=== PATIENT | female | born 1940 | race Caucasian/White ===

== ENCOUNTER → 2019-02-06 | Outpatient (CLI) | payer MEDICARE | LOC: MC.RAD 10:29 | DX: N63.11 Unspecified lump in the right breast, upper outer quadrant (principal) | CPT/HCPCS: G0279 ==

== ENCOUNTER 2019-02-17 10:00 | Outpatient (RCR) | payer MEDICARE ==
[2019-02-11 09:49] VITALS: BP 124/53; PULSE 60; TEMP 97.5
[~2019-02-17] VITALS: Ht 157.5 cm; Wt 75.2 kg
[~2019-02-17 10:00] MED LIST: ZOFRAN8 MG PO; ZOVIRAX400 MG PO; ZYLOPRIM 300MG300 MG PO
--- NOTE | 2019-02-17 10:00 | NUR ---
PICC intact left upper arm with sterile dressing change done with insertion site cleansed with chloraprep x 1, chlorhexidine impregnated disk applied, skin prep, stat lock, and tegaderm applied. no signs or symptoms of IV complications noted. no concerns voiced. re-wrapped with norm to protect catheter. to return next week for cares. voiced understanding of instructions.
[2019-02-17 10:14] VITALS: BP 115/52; PULSE 62; TEMP 98
== END 2019-02-18 15:40 | disposition home or self-care (01) ==
LOC: EUO 10:00
DX: Z45.2 Encounter for adjustment and management of vascular access device (principal); N63.11 Unspecified lump in the right breast, upper outer quadrant; Z85.6 Personal history of leukemia; Z87.81 Personal history of (healed) traumatic fracture; Z95.9 Presence of cardiac and vascular implant and graft, unspecified
CPT/HCPCS: C1751

== ENCOUNTER 2019-03-13 06:46 | Day surgery (SDC) | payer MEDICARE ==
[~2019-03-13] VITALS: Ht 157.5 cm; Wt 74.5 kg
--- NOTE | 2019-03-13 07:23 | NUR ---
Patient ambulatory from radiology accompanied by Marguerite to room 5 and is alert and oriented x3. Voices understanding of surgery and consent signed. Changes clothes and resting on cart and covered with warm blankets. Left upper arm PICC line noted and site is free of redness or swelling. Cap changed and PICC line flushed per protocol. Lab drawn as ordered. Daughter in room. Call light in reach and siderails up x2.
[2019-03-13 07:58] LABS: MEAN CELL VOLUME 105 fl (80.0-100.0); MEAN CORPUSCULAR HGB CONC 31 g/dl (33.0-37.0); RED BLOOD COUNT 2.85 M/mm3 (4.10-5.30); REDCELL DISTRIBUTION WIDTH-CV 19.5 % (11.5-14.5)
[2019-03-13 08:07] LABS: HEMATOCRIT 29.9 % (37.0-47.0); HEMOGLOBIN 9.3 g/dl (12.5-16.0); MEAN CORPUSCULAR HEMOGLOBIN 33 pg (27.0-31.0)
[2019-03-13 08:11] LABS: PLATELET COUNT 49 K/mm3 (130-400)
--- NOTE | 2019-03-13 08:19 | NUR ---
Lab results called to Dr. Barrientos and will await further orders.
[2019-03-13 08:21] VITALS: BP 112/53; PULSE 64; TEMP 97.4
[2019-03-13 08:39] LABS: BAND 9 % (0-10); EOSINOPHIL 6 % (0-4); LYMPHOCYTE 44 % (20.0-51.0); NEUTROPHILS 36 % (42.0-75.2); PLATELET ESTIMATE DECREASED (NORMAL)
[2019-03-13] MEDS ORDERED: ZYLOPRIM 300MG300 MG PO (08:48)
[2019-03-13] MEDS ORDERED: TENORMIN 5050 MG/TAB PO (08:48)
[2019-03-13] MEDS ORDERED: NEURONTIN300 MG/CAP PO (08:51)
[2019-03-13] MEDS ORDERED: VOLTAREN 50MG T50 MG PO (08:51)
[2019-03-13] MEDS ORDERED: SINGULAIR 110 MG/TAB PO (08:52)
[2019-03-13] MEDS ORDERED: MICRO-K 10 EXT10 MEQ PO (08:52)
[2019-03-13] MEDS ORDERED: DIOVAN HCT 25 M1 TA1 PO (08:53)
[2019-03-13] MEDS ORDERED: VENCLEXTA100 MG PO (08:54)
--- NOTE | 2019-03-13 09:00 | NUR ---
Dr. Barrientos here and is talking with the patient regarding low platelet count. Plan to cancel surgery for today and will reschedule for next Sunday. Dr. Barrientos talked to Dr. Haddad and will plan on drawing lab on Sunday. Dr. Barrientos's office will call the patient with all the details. Patient and daughter both verbalize undertanding of this.
--- NOTE | 2019-03-13 09:23 | NUR ---
IVF discontinued and PICC line flushed per protocol. Patient dismissed to home per private vehicle driven by daughter and taken to the front door per Patti LINE PAINTING MACHINE OPERATOR and assisted into car.
== END 2019-03-13 09:23 | disposition home or self-care (01) ==
LOC: SDCO 06:46
PROVIDERS: Surgery
DX: C50.411 Malignant neoplasm of upper-outer quadrant of right female breast (principal); I10 Essential (primary) hypertension; G47.33 Obstructive sleep apnea (adult) (pediatric); M19.90 Unspecified osteoarthritis, unspecified site; C92.50 Acute myelomonocytic leukemia, not having achieved remission; Z17.1 Estrogen receptor negative status [ER-]; Z79.82 Long term (current) use of aspirin; Z92.21 Personal history of antineoplastic chemotherapy; Z85.3 Personal history of malignant neoplasm of breast; Z80.1 Family history of malignant neoplasm of trachea, bronchus and lung; Z83.3 Family history of diabetes mellitus; Z82.49 Family history of ischemic heart disease and other diseases of the circulatory system; Z80.3 Family history of malignant neoplasm of breast; Z53.8 Procedure and treatment not carried out for other reasons
CPT/HCPCS: A9541; J7120

== ENCOUNTER 2019-03-19 06:40 | Day surgery (SDC) | payer MEDICARE ==
[~2019-03-19] VITALS: Ht 157.5 cm; Wt 76.2 kg
[2019-03-19] VITALS (14 sets, daily range): BP systolic 112–138; BP diastolic 51–92; PULSE 57–89; TEMP 97.1–98.4
[~2019-03-19 06:40] MED LIST changes: +DIOVAN HCT 25 M1 TA1 PO; +MICRO-K 10 EXT10 MEQ PO; +NEURONTIN300 MG/CAP PO; +SINGULAIR 110 MG/TAB PO; +TENORMIN 5050 MG/TAB PO; +VENCLEXTA100 MG PO; +VOLTAREN 50MG T50 MG PO
--- NOTE | 2019-03-19 06:46 | NUR ---
The patient ambulated back to [place] [facility] independently using a steady gait and appeared to tolerate the activity well. The patient's vital signs were obtained. Consent signed. Lab has been called to obtained blood from nurse off PICC line for labs as ordered. Will continue to monitor the patient.
[2019-03-19 07:23] LABS: MEAN CELL VOLUME 105 fl (80.0-100.0); MEAN CORPUSCULAR HGB CONC 30 g/dl (33.0-37.0); MEAN PLATELET VOLUME 11.4 fl (7.4-10.4); RED BLOOD COUNT 2.86 M/mm3 (4.10-5.30); REDCELL DISTRIBUTION WIDTH-CV 18.8 % (11.5-14.5)
--- NOTE | 2019-03-19 07:30 | NUR ---
Marguerite from [facility] is at the patient's bedside to take her via cart to their department to have her injections done prior to surgery. The patient's chart was sent with her. The nurse will continue to monitor the patient when she returns to the unit. The patient's family was brought back to be at her bedside and is going to wait in her room while she goes to radiology.
[2019-03-19 07:54] LABS: HEMATOCRIT 29.9 % (37.0-47.0); HEMOGLOBIN 9.1 g/dl (12.5-16.0); MEAN CORPUSCULAR HEMOGLOBIN 32 pg (27.0-31.0); PLATELET COUNT 41 K/mm3 (130-400)
[2019-03-19 08:58] LABS: ANISOCYTOSIS 1+; BAND 16 % (0-10); BASOPHIL 2 % (0-2); LYMPHOCYTE 46 % (20.0-51.0); METAMYELOCYTE 2 % (0-0); MYELOCYTE 2 % (0-0); NEUTROPHILS 26 % (42.0-75.2); PLATELET ESTIMATE DECREASED (NORMAL)
--- NOTE | 2019-03-19 10:42 | NUR ---
Initial visit; Patient and her family thanked Planting Material Carrier for offering encouragement and prayer prior to her surgical procedure. Planting Material Carrier prayed for a successful procedure and rapid and thorough healing.
--- NOTE | 2019-03-19 10:45 | NUR ---
The patient was taken via cart to radiology to finish her imaging with nuculear medicine prior to surgery. Will continue to monitor the patient when she returns to the unit.
--- NOTE | 2019-03-19 11:40 | NUR ---
The patient's unit of irradiated platelets were started at this time according to the policy and procedure in place. The transfusion is infusing into a PICC line in the patient's left upper arm without difficulty. Vital signs were started prior to the transfusion starting. The unit was checked with [facility] prior to it being started. The patient and her family were educated on the signs of symptoms of transfusion reaction and verbalizes understanding. The nurse is to stay at the patient's bedside for the first 15 minutes of the transfusion. The transfusion is infusing at a rate of 60 ml/hr IV. Will continue to monitor the patient.
--- NOTE | 2019-03-19 11:55 | NUR ---
The patient's transfusion has been infusing for 15 minutes at this time. The patient denies any signs or symptoms of transfusion reaction and the nurse agrees with this assessment. The patient's vital signs were obtained and documented at this time. Family remains at her bedside. The transfusion is now infusing at a rate of 500 ml/hr IV. Will continue to monitor the patient.
--- NOTE | 2019-03-19 12:10 | NUR ---
The patient's transfusion has been infusing for 30 minutes at this time. The patient appears to be tolerating it well without any complaints of transfusion reaction and the nurse agrees. The patient's transfusion continues to infuse at the same rate. Vital signs were obtained and documented at this time. Family remains at her bedside. Will continue to monitor the patient.
--- NOTE | 2019-03-19 12:40 | NUR ---
The patient's transfusion is complete at this time and the line is running clear. The patient was disconnected from the platelets and her PICC line was flushed with 20 mL of saline flush prior to her LR for OR being started. The patient is going to ambulate to the bathroom before the nurse starts the LR. The patient continues to deny any signs or symptoms of transfusion reaction and the nurse agrees. Vital signs were obtained. Family remains at her bedside. Will continue to monitor the patient.
--- NOTE | 2019-03-20 02:07 | NUR ---
PATIENT DOING WELL TONIGHT. LAST FEW SETS OF POST OPS WERE WDL. PATIENTS LORE DRAIN IS DRAINING BLOOD TINGED FLUID. DRESSING TO LORE DRAIN SITE CDI. L PORTACATH DRESSING CDI. BANDAID TO L NECK CDI. PATIENT DENIES PAIN OR NEED FOR PAIN MEDICATION. AMBULATED TO BATHROOM AND IN HALLWAY 200 FEET. PICC TO LUE IS SALINE LOCKED AND PATENT WITH GOOD BLOOD RETURN. PATIENT IS VOIDING WITHOUT ISSUE. HAD A SNACK BEFORE BED. IS RESTING NOW. NO FURTHER NEEDS AT THIS TIME. WILL CONTINUE TO MONITOR.
[2019-03-20 03:23] VITALS: BP 101/48; PULSE 65; TEMP 97.6
[2019-03-20 06:58] VITALS: BP 155/83; PULSE 69; TEMP 98.7
[2019-03-20 07:15] LABS: MEAN CELL VOLUME 104 fl (80.0-100.0); MEAN CORPUSCULAR HGB CONC 30 g/dl (33.0-37.0); PLATELET COUNT 50 K/mm3 (130-400); RED BLOOD COUNT 2.68 M/mm3 (4.10-5.30); REDCELL DISTRIBUTION WIDTH-CV 18.6 % (11.5-14.5)
[2019-03-20 07:20] LABS: HEMATOCRIT 27.9 % (37.0-47.0); HEMOGLOBIN 8.4 g/dl (12.5-16.0); MEAN CORPUSCULAR HEMOGLOBIN 31 pg (27.0-31.0)
--- NOTE | 2019-03-20 08:00 | NUR ---
Patient has been sitting up on the side of bed all morning. She is denies pain and nausea. Dressing to right chest is clean and dry. LORE drain to bulb suction with pink drainage, no clots noted in drainage. Dressing to left chest port site is C/D/I. Patient stated she is ready to go home. Explained that we have to wait for Dr Barrientos to come see her. Patient verbalized understanding. No other changes at this time. Call light within reach.
--- NOTE | 2019-03-20 09:14 | NUR ---
Follow-up visit; Patient thanked Environmental Field Office Manager for looking in on her, offering a prayer and blessing and for keeping her in Environmental Field Office Manager's prayers.
--- NOTE | 2019-03-20 10:01 | NUR ---
Video Recorder Mechanic met with the patient to discuss discharge planning. Patient lives in [place] with her daughter, Roya (ph#[phone]). Patient states she sees Dr. Roxanne Hadley for primary care and obtains her medications from [facility] in with no difficulties. Patient reports independence with ADLS and has a cane, walker with tennis balls, and walker with brakes and seat at home although she does not utilize them often. Patient states her DPOA-HC are her daughters Roya and Pat. Patient has no concerns at this time about returning home upon discharge. Patient's daughter, Roya to provide transportation upon discharge.
[2019-03-20 12:20] VITALS: BP 125/54; PULSE 68; TEMP 98.3
--- NOTE | 2019-03-20 13:39 | NUR ---
Patient visiting with family in room. LORE drain to bulb suction with blood tinged drainage. gauze dressing to chest remain CDI. Patient states shes in no pain. Voices no other concerns at this time. Reported off to [facility].
--- NOTE | 2019-03-20 15:45 | NUR ---
Patient is discharging home. Discharge instructions discussed with patient and her family. No questions verbalized. PICC line discontinued. Demonstrated how to empty the LORE drain. Answered all quesitons for daughter and patient about the drain and care for it. Sent with cups to measure output and explained how to keep track of the drainage. Patient and daughter verbalized understanding. Copies of discharge instructions sent with patient. Explained when her follow up appointment is. All belongings packed up and sent with patient. Patient walked out via wheel chair by Carly VALENCIA.
== END 2019-03-20 15:40 | disposition home or self-care (01) ==
LOC: SDCO 06:40 → SURG 17:16 → SDCO 03-20 15:40
PROVIDERS: Surgery
DX: C50.411 Malignant neoplasm of upper-outer quadrant of right female breast (principal); C92.00 Acute myeloblastic leukemia, not having achieved remission; Z17.1 Estrogen receptor negative status [ER-]; G47.33 Obstructive sleep apnea (adult) (pediatric); Z80.3 Family history of malignant neoplasm of breast; Z79.899 Other long term (current) drug therapy; Z79.82 Long term (current) use of aspirin; I10 Essential (primary) hypertension; G62.9 Polyneuropathy, unspecified; M19.90 Unspecified osteoarthritis, unspecified site; R20.2 Paresthesia of skin
CPT/HCPCS: OP; A9541; C1788; J0690; J1100; J1644; J2405; J2704; J3010; J7050; J7120; P9037

== ENCOUNTER → 2020-03-10 | Outpatient (CLI) | payer MEDICARE ==
[~2020-03-10] MED LIST changes: +DIOVAN320 MG PO; +HCTZ 25MG TAB25 MG PO; +MULTIVITAMIN SEN PO; +NEURONTIN100 MG/CAP PO; +TYLENOL 8 HR PO; +VOLTAREN SR25 MG/TAB PO
== END ==
LOC: MC.RAD 09:25
DX: Z12.31 Encounter for screening mammogram for malignant neoplasm of breast (principal); N63.20 Unspecified lump in the left breast, unspecified quadrant; Z85.3 Personal history of malignant neoplasm of breast; Z90.11 Acquired absence of right breast and nipple

== ENCOUNTER 2020-03-15 08:53 | Outpatient (CLI) | payer MEDICARE ==
[~2020-03-15] VITALS: Ht 157.5 cm; Wt 62.0 kg
[2020-03-15] VITALS (13 sets, daily range): BP systolic 100–128; BP diastolic 54–72; PULSE 58–72
--- NOTE | 2020-03-15 10:30 | NUR ---
pt positioned in CT scanner, Dr Bales in to start procedure
--- NOTE | 2020-03-15 10:40 | NUR ---
50mcg fentanyl given as ordered, procedure in progress
--- NOTE | 2020-03-15 10:50 | NUR ---
kj obtained and put in formulin.
--- NOTE | 2020-03-15 12:15 | NUR ---
Report from Breana TOVAR. Bandair to left mid chest CD&I. PAC noted accessed with 1 inch Orellana needle. Denies pain at this time. VSS
--- NOTE | 2020-03-15 13:45 | NUR ---
PAC flushed with 10 ml Ns and 100 units heparin and de-accessed with bandaid placed over site. Discharge instructions given and pt transferred to private car by shelby
== END 2020-03-15 14:30 | disposition home or self-care (01) ==
LOC: COL.RAD 08:53
DX: C50.919 Malignant neoplasm of unspecified site of unspecified female breast (principal); C92.50 Acute myelomonocytic leukemia, not having achieved remission; R91.8 Other nonspecific abnormal finding of lung field
CPT/HCPCS: J1644; J3010

== ENCOUNTER → 2020-03-19 | Outpatient (CLI) | payer MEDICARE | LOC: MC.RAD 10:44 | DX: N63.20 Unspecified lump in the left breast, unspecified quadrant (principal); Z85.3 Personal history of malignant neoplasm of breast ==